=== PATIENT | female | born 1975 | race Caucasian/White ===

== ENCOUNTER 2017-10-26 05:35 | Inpatient (IN) | payer OTHER ==
[2017-10-26] MEDS ORDERED: SODIUM CL BACTERIOSTATIC 30 ML INJ (06:47)
[2017-10-26] MEDS ORDERED: morphine SULFATE/PF (10 MG/10 ML) INJ (07:43)
[2017-10-26] MEDS ORDERED: MIDAZOLAM 1 MG/ML 2 ML INJ ×2 (07:43→07:55)
[2017-10-26] MEDS ORDERED: metroNIDAZOLE 500 MG/NS (PMX) 0 ML IVPB (07:54)
[2017-10-26] MEDS ORDERED: PHENYLephrine (100 MCG/ML) 5ML SYG (07:59)
[2017-10-26] MEDS ORDERED: FAMOTIDINE 20 MG INJ (08:12)
[2017-10-26] MEDS ORDERED: ONDANSETRON 4 MG INJ (08:12)
[2017-10-26] MEDS ORDERED: GENTAMICIN 80 MG INJ (08:14)
[2017-10-26] MEDS ORDERED: LIDOCAINE 2% (SDV) 5 ML INJ (08:27)
[2017-10-26] MEDS ORDERED: SUCCINYLCHOLINE CHLORIDE 100 MG/5 ML SYG IV (08:27)
[2017-10-26] MEDS ORDERED: PROPOFOL 20 ML (08:27)
[2017-10-26] MEDS ORDERED: metroNIDAZOLE 500 MG/NS (PMX) 100 ML IVPB ×2 (08:28→11:00)
[2017-10-26] MEDS ORDERED: EPHEDrine SULFATE 50 MG/5 ML SYG (08:28)
[2017-10-26] MEDS: VASOPRESSIN 20 UNITS INJ (08:38)
[2017-10-26] MEDS ORDERED: PROCHLORPERAZINE 10 MG INJ IV (09:00)
[2017-10-26] MEDS ORDERED: HYDROmorphONE 0.5 MG/0.5 ML SYG IV ×2 (09:00)
[2017-10-26] MEDS ORDERED: DIPHENHYDRAMINE 50 MG INJ IV ×2 (09:00)
[2017-10-26] MEDS ORDERED: NALBUPHINE HCL (10 MG/1 ML) INJ IV (09:00)
[2017-10-26] MEDS ORDERED: MEPERIDINE 25 MG INJ IV (09:00)
[2017-10-26] MEDS ORDERED: ONDANSETRON 4 MG INJ IV ×2 (09:00→10:30)
[2017-10-26] MEDS ORDERED: FENTAnyl 50 MCG/ML VIAL IV ×2 (09:00)
[2017-10-26] MEDS ORDERED: HYDROmorphONE (0.2 MG/ML) 10ML SYG IV ×2 (09:00)
[2017-10-26] MEDS ORDERED: NALOXONE (0.4 MG/ML) INJ IV (09:00)
[2017-10-26] MEDS: FENTAnyl 50 MCG/ML VIAL IV (10:20)
[2017-10-26] MEDS: HYDROmorphONE (0.2 MG/ML) 10ML SYG IV (10:20)
[2017-10-26] MEDS: ONDANSETRON 4 MG INJ IV ×2 (10:21→15:45)
[2017-10-26] MEDS ORDERED: OXYCODONE/ACETAMINOPHEN (5/325) TAB PO ×2 (10:30)
[2017-10-26] MEDS: LACTATED RINGER'S 1,000 ML IV ×2 (11:21→13:36)
[2017-10-26] MEDS: ACETAMINOPHEN 1000MG/100ML IV 100 ML IVPB ×2 (11:21→18:40)
[2017-10-26] MEDS ORDERED: GENTAMICIN 80 MG/NS (PMX) 50 ML IVPB (12:00)
[2017-10-26] MEDS: metroNIDAZOLE 500 MG/NS (PMX) 100 ML IVPB ×2 (15:05→23:17)
[2017-10-26] MEDS: GENTAMICIN 80 MG/NS (PMX) 50 ML IVPB (16:37)
[2017-10-27] MEDS: ACETAMINOPHEN 1000MG/100ML IV 100 ML IVPB ×4 (00:33→17:57)
[2017-10-27] MEDS: GENTAMICIN 80 MG/NS (PMX) 50 ML IVPB ×2 (01:03→08:56)
[2017-10-27] MEDS: LACTATED RINGER'S 1,000 ML IV ×3 (02:53→17:02)
[2017-10-27] MEDS: IBUPROFEN 600 MG TAB PO ×2 (04:27→17:02)
[2017-10-27] MEDS: PANTOPRAZOLE 40 MG INJ IV (05:49)
[2017-10-27 06:25] LABS: ADD MAN DIFF? NO
[2017-10-27 06:31] LABS: BASOPHILS % 0.4 % (0.0-2.0); EOSINOPHILS # 0.1 10^3/ul (0.0-0.5); EOSINOPHILS % 0.5 % (0.0-7.0); HEMATOCRIT 28.5 % (37.0-47.0); LYMPHOCYTES % 9.5 % (15.0-51.0); MEAN CORPUSCULAR HEMOGLOBIN 25.1 pg (29.0-33.0); MEAN CORPUSCULAR HGB CONC 31.6 g/dl (32.0-37.0); MEAN CORPUSCULAR VOLUME 79.4 fl (82.0-101.0); MEAN PLATELET VOLUME 10.9 fl (7.4-10.4); MONOCYTES % 8.9 % (0.0-11.0); NEUTROPHIL # 8.8 10^3/ul (1.6-7.5); NEUTROPHILS % 80.2 % (39.0-77.0); PLATELET COUNT 324 10^3/UL (140-415); RED BLOOD COUNT 3.59 10^6/ul (4.20-5.40); RED CELL DISTRIBUTION WIDTH 16.9 % (11.5-14.5)
[2017-10-27 06:59] LABS: ANION GAP 9 (8-16); BLOOD UREA NITROGEN 8 mg/dl (7-20); CALCIUM 8.3 mg/dl (8.4-10.2); CARBON DIOXIDE 28 mmol/L (21-31); CHLORIDE 105 mmol/L (97-110); CREATININE 0.72 mg/dl (0.44-1.00); GLUCOSE 98 mg/dl (70-220); POTASSIUM 4.1 mmol/L (3.5-5.1); SODIUM 138 mmol/L (135-144)
[2017-10-27] MEDS: metroNIDAZOLE 500 MG/NS (PMX) 100 ML IVPB (08:15)
[2017-10-27] MEDS: OXYCODONE/ACETAMINOPHEN (5/325) TAB PO ×2 (11:36→21:06)
[2017-10-27] MEDS: ONDANSETRON 4 MG INJ IV (11:36)
[2017-10-28] MEDS: ACETAMINOPHEN 1000MG/100ML IV 100 ML IVPB ×3 (00:16→11:48)
[2017-10-28] MEDS: LACTATED RINGER'S 1,000 ML IV ×2 (02:01→04:31)
[2017-10-28] MEDS: IBUPROFEN 600 MG TAB PO (04:28)
[2017-10-28] MEDS: PANTOPRAZOLE 40 MG INJ IV (05:46)
[2017-10-28] MEDS: ENOXAPARIN 40 MG/0.4 ML SYG SC (08:33)
[2017-10-28] MEDS: OXYCODONE/ACETAMINOPHEN (5/325) TAB PO (08:40)
[2017-10-28] MEDS: BISACODYL 10 MG SUPP PR (13:22)
== END 2017-10-28 15:15 | disposition home or self-care (01) | DRG 743 ==
LOC: REC 05:35 → MS2 11:50
PROC: 0UT90ZZ Resection of Uterus, Open Approach (ICD-10-PCS; principal; 2017-10-26 07:30)
PROC: 0UT70ZZ Resection of Bilateral Fallopian Tubes, Open Approach (ICD-10-PCS; 2017-10-26 07:30)
DX: N93.9 Abnormal uterine and vaginal bleeding, unspecified (principal); D25.1 Intramural leiomyoma of uterus; N80.0 Endometriosis of uterus; D64.9 Anemia, unspecified
CPT/HCPCS: 80048; 85025; 86850; 86900; 86901; 87086; 88305

== ENCOUNTER 2018-05-23 12:11 | Day surgery (SDC) | payer OTHER | END 2018-05-23 15:52 | disposition home or self-care (01) | LOC: GIL 12:11 | DX: K21.0 Gastro-esophageal reflux disease with esophagitis (principal); K57.90 Diverticulosis of intestine, part unspecified, without perforation or abscess without bleeding; K64.8 Other hemorrhoids; K64.4 Residual hemorrhoidal skin tags; E66.9 Obesity, unspecified; Z68.31 Body mass index [BMI] 31.0-31.9, adult | CPT/HCPCS: 43239; 88305; 88312; 88313 ==